=== PATIENT | female | born 1940 | race Caucasian/White ===

== ENCOUNTER 2017-06-11 18:13 | Observation (INO) | payer SELFPAY ==
--- NOTE | 2017-06-11 18:21 | PDOC ---
History of Present Illness - General History Source: Patient, Family Exam Limitations: No Limitations <Ruth Ann Caceres - Last Filed: 06/11/17 22:01> <Khushbu Eduardo - Last Filed: 06/11/17 22:11> - General Chief Complaint: Syncope/Near Syncope Stated Complaint: SYNCOPE - History of Present Illness Initial Comments: 06/11/17 18:42 The patient is a 76 year old female, with a significant PMH of hypertension who presents to the emergency department s/p syncopal episode earlier today. The patient reports that she was eating dinner when she had a sudden onset of slight nausea and diaphoresis. As per family, patient suddenly lost consciousness and her eyes rolled to the back of her head. Family states this episode of LOC lasted 1 minute before resolving. Thereafter family members positioned her on the couch seated with her feet up and symptoms improved. Upon the arrival to the ED, patient has no complaints. Patient states she was at her baseline earlier today, before eating dinner. The patient denies chest pain, shortness of breath, headache and dizziness. Denies fever, chills, vomit, diarrhea and constipation. Denies dysuria, frequency, urgency and hematuria. Social history: Patient lives in [place] with family. (Ruth Ann Caceres) Past History <Ruth Ann Caceres - Last Filed: 06/11/17 22:01> <Khushbu Eduardo - Last Filed: 06/11/17 22:11> - Past Medical History Allergies/Adverse Reactions: Allergies Allergy/AdvReac Type Severity Reaction Status Date / Time No Known Allergies Allergy Verified 06/11/17 18:34 Home Medications: Ambulatory Orders Isosorbide Mononitrate 10 mg PO DAILY 06/11/17 Review of Systems - Review of Systems Able to Perform ROS?: Yes All Other Systems: Reviewed and Negative <Ruth Ann Caceres - Last Filed: 06/11/17 22:01> <Khushbu Eduardo - Last Filed: 06/11/17 22:11> - Review of Systems Comments:: 06/11/17 18:44 CONSTITUTIONAL: +diaphoresis Absent:fever, chills, generalized weakness, malaise, loss of appetite HEENT: Absent: rhinorrhea, nasal congestion, throat pain, throat swelling, difficulty swallowing, mouth swelling, ear pain, eye pain, visual Changes CARDIOVASCULAR: Absent: chest pain, syncope, palpitations, irregular heart rate, lightheadedness , peripheral edema RESPIRATORY: Absent: cough, shortness of breath, dyspnea with exertion, orthopnea, wheezing, stridor, hemoptysis GASTROINTESTINAL:+nausea Absent: abdominal pain, abdominal distension, vomiting, diarrhea, constipation, melena, hematochezia GENITOURINARY: Absent: dysuria, frequency, urgency, hesitancy, hematuria, flank pain, genital pain MUSCULOSKELETAL: Absent: myalgia, arthralgia, joint swelling SKIN: Absent: rash, itching, pallor HEMATOLOGIC/IMMUNOLOGIC: Absent: easy bleeding, easy bruising, lymphadenopathy, frequent infections ENDOCRINE: Absent: unexplained weight gain, unexplained weight loss, heat intolerance, cold intolerance NEUROLOGIC: +loss of consciousness Absent: headache, focal weakness or paresthesias, dizziness, unsteady gait, seizure, mental status changes, bladder or bowel incontinence PSYCHIATRIC: Absent: anxiety, depression, suicidal or homicidal ideation, hallucinations. (Ruth Ann Caceres) *Physical Exam <Ruth Ann Caceres - Last Filed: 06/11/17 22:01> <Khushbu Eduardo - Last Filed: 06/11/17 22:11> - Vital Signs Last Vital Signs Temp Pulse Resp BP Pulse Ox 97.6 F 67 18 193/82 94 L 06/11/17 18:25 06/11/17 20:00 06/11/17 20:00 06/11/17 20:00 06/11/17 20:00 - Physical Exam Comments: 06/11/17 18:45 GENERAL: Well developed, well nourished. Awake and alert. No acute distress. HEENT: Normocephalic, atraumatic. PERRLA, EOMI. No conjunctival pallor. Sclera are non- icteric. Moist mucous membranes. Oropharynx is clear. NECK: Supple. Full ROM. No JVD. Carotid pulses 2+ and symmetric, without bruits. No thyromegaly. No lymphadenopathy. CARDIOVASCULAR: Regular rate and rhythm. No murmurs, rubs, or gallops. Distal pulses are 2+ and symmetric. PULMONARY: No evidence of respiratory distress. Lungs clear to auscultation bilaterally. No wheezing, rales or rhonchi. ABDOMINAL: Soft. Non-tender. Non-distended. No rebound or guarding. No organomegaly. Normoactive bowel sounds. MUSCULOSKELETAL Normal range of motion at all joints. No bony deformities or tenderness. No CVA tenderness. EXTREMITIES: No cyanosis. No clubbing. No edema. No calf tenderness. SKIN: Warm and dry. Normal capillary refill. No rashes. No jaundice. NEUROLOGICAL: Alert, awake, appropriate. Cranial nerves 2-12 intact. No deficits to light touch and temperature in face, upper extremities and lower extremities. No motor deficits in the in face, upper extremities and lower extremities. Normoreflexic in the upper and lower extremities. Normal speech. Toes are down- going bilaterally. Gait is normal without ataxia. PSYCHIATRIC: Cooperative. Good eye contact. Appropriate mood and affect. (Ruth Ann Caceres) Heart Score/ECG Review <Ruth Ann Caceres - Last Filed: 06/11/17 22:01> - Electrocardiogram EKG: Normal - Age Age: >/= 65 - Risk Factors Risk Factors Heart Score: Yes Hx Hypertension Based on the list above the patient has:: 1-2 risk factors - ECG Intrepretation Rhythm: Regular Rhythm - [place]: Normal - P and [place] Delta Wave(s) Present: No WPW: No - QRS Q Wave Present: No - ST and T Early Repolarization: No Non Specific ST-T Wave changes: Yes <Khushbu Eduardo - Last Filed: 06/11/17 22:11> #1 06/11/17 18:46 Vent rate 68 bpm [place] interval 156ms QRS duration 92ms Normal sinus rhythm Nonspecific ST and T wave abnormality Reported by Dr. Eduardo (Ruth Ann Caceres) ED Treatment Course - LABORATORY CBC & Chemistry Diagram: 06/11/17 18:35 06/11/17 20:31 <Ruth Ann Caceres - Last Filed: 06/11/17 22:01> - LABORATORY CBC & Chemistry Diagram: 06/11/17 18:35 06/11/17 20:31 <Khushbu Eduardo - Last Filed: 06/11/17 22:11> - ADDITIONAL ORDERS Additional order review: Laboratory Results 06/11/17 06/11/17 06/11/17 20:31 18:35 18:35 PT with INR INR Sodium 138 Cancelled Potassium 3.7 Cancelled Chloride 105 Cancelled Carbon Dioxide 24 Cancelled Anion Gap 9 Cancelled BUN 15 Cancelled Creatinine 0.7 Cancelled Creat Clearance w eGFR > 60 Cancelled Random Glucose 93 Cancelled Calcium 8.7 Cancelled Total Bilirubin 0.6 Cancelled AST 20 Cancelled ALT 26 Cancelled Alkaline Phosphatase 62 Cancelled Creatine Kinase 61 Cancelled Troponin I < 0.02 Cancelled Total Protein 7.6 Cancelled Albumin 4.1 Cancelled Triglycerides Cancelled Cholesterol Cancelled Total LDL Cholesterol Cancelled HDL Cholesterol Cancelled Blood Type A POSITIVE 06/11/17 18:35 PT with INR 11.90 H INR 1.05 Sodium Potassium Chloride Carbon Dioxide Anion Gap BUN Creatinine Creat Clearance w eGFR Random Glucose Calcium Total Bilirubin AST ALT Alkaline Phosphatase Creatine Kinase Troponin I Total Protein Albumin Triglycerides Cholesterol Total LDL Cholesterol HDL Cholesterol Blood Type 06/11/17 18:35 RBC 4.58 MCV 88.3 MCHC 33.7 RDW 12.7 MPV 8.1 Neutrophils % 63.1 Lymphocytes % 28.8 Monocytes % 7.1 Eosinophils % 0.6 Basophils % 0.4 - RADIOLOGY Radiology Studies Ordered: Category Date Time Status HEAD CT WITHOUT CONTRAST [CT] Stat CT Scan 06/11/17 18:20 Taken CHEST X-RAY PORTABLE* [RAD] Stat Radiology 06/11/17 19:12 Taken Radiograph Interpretation: 06/11/17 20:48 EXAM: CT head without contrast FINDINGS: 1. There is no evidence of an acute intracranial process, intracranial hemorrhage or mass effect. There is atherosclerotic vascular calcification of the internal carotid arteries bilaterally at the skull base. 2. The ventricles are normal size. 3. The visualized portions of the orbits, paranasal and mastoid sinuses are notable for hypoplastic mastoid sinuses bilaterally. 4. No evidence of fracture If there is a clinical suspicion of an acute intracranial process and if there is no clinical contraindication, MRI of the brain may be helpful. Reported by Imaging Oncall (Ruth Ann Caceres) - Medications Given in the ED: ED Medications Discontinued Medications Generic Name Dose Route Start Last Admin Trade Name Freq PRN Reason Stop Dose Admin Amlodipine Besylate 5 mg 06/11/17 20:12 06/11/17 20:24 Norvasc - PO 06/11/17 20:13 5 mg ONCE ONE Administration Aspirin 81 mg 06/11/17 21:35 06/11/17 21:41 Asa - PO 06/11/17 21:36 81 mg ONCE ONE Administration Hydrochlorothiazide 25 mg 06/11/17 20:12 06/11/17 20:24 Hctz - PO 06/11/17 20:13 25 mg ONCE ONE Administration Medical Decision Making <Ruth Ann Caceres - Last Filed: 06/11/17 22:01> <Khushbu Eduardo - Last Filed: 06/11/17 22:11> - Medical Decision Making 06/11/17 22:[address] Elliott at 9:58pm (Ruth Ann Caceres) 06/11/17 18:30 76-year-old female brought in by ambulance from home after having a syncopal episode during Easter dinner.The episode lasted about 1 minute Upon arrival, the patient was alert and conversant with no specific complaints -just prior to the episode she felt nausea and her family stated she became diaphoretic .they took her to the cough and liad her down and she felt better PMH Angina, HTN PSH none PCP pt is visiting from [facility] IMP syncope plan ekg,ct head,cardiac enzymes,chemistries (Khushbu Eduardo) *DC/Admit/Observation/Transfer <Ruth Ann Caceres - Last Filed: 06/11/17 22:01> - Discharge Dispostion Admit: Yes <Khushbu Eduardo - Last Filed: 06/11/17 22:11> Diagnosis at time of Disposition: Syncope Qualifiers: Syncope type: unspecified Qualified Code(s): R55 - Syncope and collapse Hypertension Qualifiers: Hypertension type: essential hypertension Qualified Code(s): I10 - Essential ( primary) hypertension - Discharge Dispostion Decision to Admit order Date/Time: Decision to Admit Order Category Date Time Status Decision to Admit to Hospital Routine Admission 06/11/17 22:00 Active - Attestations Scribe Attestion: 06/11/17 18:50 Documentation prepared by Ruth Ann Caceres, acting as medical transport specialist for Khushbu Eduardo MD (Ruth Ann Caceres)
[2017-06-11 18:57] LABS: BASO % 0.4 % (0-2.0); EOS % 0.6 % (0-4.5); HEMATOCRIT 40.5 % (32.4-45.2); HEMOGLOBIN 13.7 GM/dL (10.7-15.3); LYMPH % 28.8 % (8-40); MCH 29.8 pg (25.7-33.7); MCHC 33.7 g/dl (32.0-36.0); MEAN CELL VOLUME 88.3 fl (80-96); MEAN PLT VOLUME 8.1 fl (7.5-11.1); MONO % 7.1 % (3.8-10.2); NEUT % 63.1 % (42.8-82.8); PLATELET COUNT 264 K/MM3 (134-434); RBC 4.58 M/mm3 (3.60-5.2); RDW 12.7 % (11.6-15.6); WHITE BLOOD COUNT 7.4 K/mm3 (4.0-10.0)
[2017-06-11 19:09] LABS: INR 1.05 (0.82-1.09); PROTHROMBIN TIME (PATIENT) 11.9 SEC (9.98-11.88)
[2017-06-11] MEDS ORDERED: HYDROCHLOROTHIAZIDE 25 MG TABLET (FP) PO ONE (20:12)
[2017-06-11] MEDS ORDERED: amLODIPine BESYLATE 5 MG TABLET (FP) PO ONE (20:12)
[2017-06-11] MEDS ORDERED: amLODIPine BESYLATE 5 MG TABLET (FP) ONE (20:27)
[2017-06-11] MEDS ORDERED: HYDROCHLOROTHIAZIDE 25 MG TABLET (FP) ONE (20:28)
[2017-06-11 21:12] LABS: ALBUMIN 4.1 g/dl (3.4-5.0); ANION GAP 9 (8-16); BLOOD UREA NITROGEN 15 mg/dL (7-18); CALCIUM 8.7 mg/dL (8.5-10.1); CHLORIDE 105 mmol/L (98-107); CO2 24 mmol/L (21-32); CREATININE 0.7 mg/dL (0.55-1.02); GLUCOSE,RANDOM 93 mg/dL (74-106); POTASSIUM 3.7 mmol/L (3.5-5.1); SGOT/AST 20 U/L (15-37); SGPT/ALT 26 U/L (12-78); SODIUM 138 mmol/L (136-145)
[2017-06-11 21:16] LABS: ALK PHOS 62 U/L (45-117); BILIRUBIN,TOTAL 0.6 mg/dL (0.2-1.0); TOT PROT 7.6 g/dl (6.4-8.2)
[2017-06-11] MEDS ORDERED: ASPIRIN 81 MG CHEWABLE TABLETS PO ONE (21:35)
--- NOTE | 2017-06-11 22:04 | HP ---
CHIEF COMPLAINT: syncope PCP: none HISTORY OF PRESENT ILLNESS: 76 year old, Prydeinig-speaking female with a hx of hypertension and stable angina presents to the hospital s/p syncopal episode at dinner today. She is visiting from [facility]. She states that she was at the dinner table sitting comfortably when she began to feel dizzy and felt as if she was going to pass out. Her family reports that the patient's eye's rolled into the back of her chair and she fell sideways. The family reports placing the patient in bed with her head propped up. Reports that the patient awoke within 1 minute of the incident and did not have any confusion or difference in mental status. The family states that this morning, the patient's daughter gave the patient a lasix because of her feeling "bloated" and for her blood pressure. Patient does not take lasix regularly. Denies any prior chest pain, shortness of breath, nausea or vomiting, headache, blurry vision, double vision, diaphoresis. Currently, patient is asymptomatic. Family states that the patient had one prior syncopal episode many years ago during the patient's second . ER course was notable for: (1) BP 193/82 (2) Trop negative (3) Recent Travel: visiting from [facility] PAST MEDICAL HISTORY: HTN, Stable Angina PAST SURGICAL HISTORY: none Social History: Smoking: never Alcohol: never Drugs: never Allergies No Known Allergies Allergy (Verified 06/11/17 18:34) HOME MEDICATIONS: Home Medications Medication Instructions Recorded Isosorbide Mononitrate 10 mg PO DAILY 06/11/17 REVIEW OF SYSTEMS CONSTITUTIONAL: Absent: fever, chills, diaphoresis, generalized weakness, malaise, loss of appetite, weight change HEENT: Absent: rhinorrhea, nasal congestion, throat pain, throat swelling, difficulty swallowing, mouth swelling, ear pain, eye pain, visual changes CARDIOVASCULAR: Absent: chest pain, syncope, palpitations, irregular heart rate, lightheadedness , peripheral edema RESPIRATORY: Absent: cough, shortness of breath, dyspnea with exertion, orthopnea, wheezing, stridor, hemoptysis GASTROINTESTINAL: Absent: abdominal pain, abdominal distension, nausea, vomiting, diarrhea, constipation, melena, hematochezia GENITOURINARY: Absent: dysuria, frequency, urgency, hesitancy, hematuria, flank pain, genital pain MUSCULOSKELETAL: Absent: myalgia, arthralgia, joint swelling, back pain, neck pain SKIN: Absent: rash, itching, pallor HEMATOLOGIC/IMMUNOLOGIC: Absent: easy bleeding, easy bruising, lymphadenopathy, frequent infections ENDOCRINE: Absent: unexplained weight gain, unexplained weight loss, heat intolerance, cold intolerance NEUROLOGIC: Absent: headache, focal weakness or paresthesias, dizziness, unsteady gait, seizure, mental status changes, bladder or bowel incontinence PSYCHIATRIC: Absent: anxiety, depression, suicidal or homicidal ideation, hallucinations. PHYSICAL EXAMINATION Vital Signs - 24 hr 06/11/17 06/11/17 18:25 20:00 Temperature 97.6 F Pulse Rate 66 Pulse Rate [ 67 Apical] Respiratory 14 18 Rate Blood Pressure 178/72 Blood Pressure 193/82 [Right Arm] O2 Sat by Pulse 94 L 94 L Oximetry (%) GENERAL: A&Ox3, no acute distress EYES: PERRLA, EOMI ENT: Moist mucus membranes NECK: No JVD LUNGS: CTA, no wheezes HEART: RRR, no murmurs ABDOMEN: Soft, nontender, BS present MUSCULOSKELETAL: No CVA Tenderness EXTREMITIES: 2+ pulses, no edema. NEUROLOGICAL: Cranial nerves II-XII intact. Laboratory Results - last 24 hr 06/11/17 06/11/17 06/11/17 18:35 18:35 18:35 WBC 7.4 RBC 4.58 Hgb 13.7 Hct 40.5 MCV 88.3 MCH 29.8 MCHC 33.7 RDW 12.7 Plt Count 264 MPV 8.1 Neutrophils % 63.1 Lymphocytes % 28.8 Monocytes % 7.1 Eosinophils % 0.6 Basophils % 0.4 PT with INR 11.90 H INR 1.05 Sodium Cancelled Potassium Cancelled Chloride Cancelled Carbon Dioxide Cancelled Anion Gap Cancelled BUN Cancelled Creatinine Cancelled Creat Clearance w eGFR Cancelled Random Glucose Cancelled Calcium Cancelled Total Bilirubin Cancelled AST Cancelled ALT Cancelled Alkaline Phosphatase Cancelled Creatine Kinase Cancelled Troponin I Cancelled Total Protein Cancelled Albumin Cancelled Triglycerides Cancelled Cholesterol Cancelled Total LDL Cholesterol Cancelled HDL Cholesterol Cancelled Blood Type 06/11/17 06/11/17 18:35 20:31 WBC RBC Hgb Hct MCV MCH MCHC RDW Plt Count MPV Neutrophils % Lymphocytes % Monocytes % Eosinophils % Basophils % PT with INR INR Sodium 138 Potassium 3.7 Chloride 105 Carbon Dioxide 24 Anion Gap 9 BUN 15 Creatinine 0.7 Creat Clearance w eGFR > 60 Random Glucose 93 Calcium 8.7 Total Bilirubin 0.6 AST 20 ALT 26 Alkaline Phosphatase 62 Creatine Kinase 61 Troponin I < 0.02 Total Protein 7.6 Albumin 4.1 Triglycerides Cholesterol Total LDL Cholesterol HDL Cholesterol Blood Type A POSITIVE ASSESSMENT/PLAN: 76 year old, Prydeinig-speaking female with a hx of hypertension and stable angina presented to the hospital s/p syncopal episode #Syncopal Episode: likely 2/2 vasovagal response and due to diuretic use -CT head negative -cardiac monitoring -echocardiogram -carotid doppler -cards consult Dr. Henry appreciated -trop negative, trend trop -EKG NSR, repeat EKG in AM #Hypertension: patient is hypertensive -patient on fosinopril -take lisinopril 10mg BID #Stable Angina: asymptomatic -continue isosorbide mononitrate 10mg BID #FEN No standing fluids Replete lytes in AM Sodium controlled diet #Prophylaxis -early ambulation with assistance #Disposition -admit to telemetry-observation Visit type - Emergency Visit Emergency Visit: Yes ED Registration Date: 06/11/17 Care time: The patient presented to the Emergency Department on the above date and was hospitalized for further evaluation of their emergent condition. - New Patient This patient is new to me today: Yes Date on this admission: 06/11/17 - Critical Care Critical Care patient: No Hospitalist Screening - Colonoscopy Questionnaire Colonoscopy Questionnaire: Colonoscopy Questionnaire - Patient: 50 - 75 years old and never had a screening colonoscopy: Unknown History of colon or rectal polyps, or CA: Unknown History of IBD, Crohn's disease or UC: Unknown History of abdominal radiation therapy as a child: Unknown - Relative: 1 with colon or rectal CA, or polyps at age 60 or younger: Unknown Colon or rectal CA diagnosed at age 45 or younger: Unknown Multiple relatives with colon or rectal CA: Unknown - Outcome: Screening Result: Negative Screen
--- NOTE | 2017-06-11 22:09 | PN ---
Teaching Attending Note Name of Resident: Prakash Hamilton ATTENDING PHYSICIAN STATEMENT I saw and evaluated the patient. I reviewed the resident's note and discussed the case with the resident. I agree with the resident's findings and plan as documented. SUBJECTIVE: 76 yo F with pmhx of htn who presents with loss of conscioussness. She was eating with her family when she has sudden nausea and sweating. As per family she lsot conscioussness, which lasted for a duration of a minute. When she was seated up again, by family her symptoms had improved. No chest pain, pressure or shortness of breath. No N, V, D. No fevers or chills. As per family pt. was given lasix day before by family member. OBJECTIVE: Physical: VS: Vital Signs Period Temp Pulse Resp BP Sys/Travis Pulse Ox Last 24 Hr 97.6 F 66-67 14-18 178-193/72-82 94-94 REPEAT BP 169/84 GEN:NAD, resting in bed, AAOX3 HEENT: NCAT, PERRL, Throat without erythema or exudates CARD: RRR S1, S2 RESP: CTAB ABD: BSx4, NTD to palpation EXT: - C/C/E CBCD WBC 7.4 K/mm3 (4.0-10.0) 06/11/17 18:35 RBC 4.58 M/mm3 (3.60-5.2) 06/11/17 18:35 Hgb 13.7 GM/dL (10.7-15.3) 06/11/17 18:35 Hct 40.5 % (32.4-45.2) 06/11/17 18:35 MCV 88.3 fl (80-96) 06/11/17 18:35 MCHC 33.7 g/dl (32.0-36.0) 06/11/17 18:35 RDW 12.7 % (11.6-15.6) 06/11/17 18:35 Plt Count 264 K/MM3 (134-434) 06/11/17 18:35 MPV 8.1 fl (7.5-11.1) 06/11/17 18:35 CMP Sodium 138 mmol/L (136-145) 06/11/17 20:31 Potassium 3.7 mmol/L (3.5-5.1) 06/11/17 20:31 Chloride 105 mmol/L (98-107) 06/11/17 20:31 Carbon Dioxide 24 mmol/L (21-32) 06/11/17 20:31 Anion Gap 9 (8-16) 06/11/17 20:31 BUN 15 mg/dL (7-18) 06/11/17 20:31 Creatinine 0.7 mg/dL (0.55-1.02) 06/11/17 20:31 Creat Clearance w eGFR > 60 (>60) 06/11/17 20:31 Random Glucose 93 mg/dL (74-106) 06/11/17 20:31 Calcium 8.7 mg/dL (8.5-10.1) 06/11/17 20:31 Total Bilirubin 0.6 mg/dL (0.2-1.0) 06/11/17 20:31 AST 20 U/L (15-37) 06/11/17 20:31 ALT 26 U/L (12-78) 06/11/17 20:31 Alkaline Phosphatase 62 U/L (45-117) 06/11/17 20:31 Total Protein 7.6 g/dl (6.4-8.2) 06/11/17 20:31 Albumin 4.1 g/dl (3.4-5.0) 06/11/17 20:31 CARDIAC ENZYMES Creatine Kinase 61 IU/L (26-192) 06/11/17 20:31 Troponin I < 0.02 ng/ml (0.00-0.05) 06/11/17 20:31 CXR: No Acute Process EKG:Vent rate 68 bpm MS interval 156ms QRS duration 92ms Normal sinus rhythm Nonspecific ST and T wave abnormality Reported by Dr. Eduardo ([facility]) CT HEAD- EXAM: CT head without contrast FINDINGS: 1. There is no evidence of an acute intracranial process, intracranial hemorrhage or mass effect. There is atherosclerotic vascular calcification of the internal carotid arteries bilaterally at the skull base. 2. The ventricles are normal size. 3. The visualized portions of the orbits, paranasal and mastoid sinuses are notable for hypoplastic mastoid sinuses bilaterally. 4. No evidence of fracture If there is a clinical suspicion of an acute intracranial process and if there is no clinical contraindication, MRI of the brain may be helpful. Reported by Imaging Oncall ASSESSMENT AND PLAN: 76 yo F with pmhx of htn who presents with loss of conscioussnes 1.) Syncope - DDx: Cardiogenic vs. Vasovagal/Neuro - Trend Trop/Ekg - Echo/Carotid Us - Check TSH - Orthostatic VS. 2.) HTN Urgency - Now improved - C/W Home Meds 3.) Dvt Ppx - SCDS Place in Obs-Tele
[2017-06-11] MEDS ORDERED: LISINOPRIL 5 MG TABLET (FP) ONE (23:47)
[2017-06-11] MEDS: LISINOPRIL 10 MG TABLET (FP) PO SCH (23:49)
[2017-06-12 07:12] LABS: HEMATOCRIT 39.7 % (32.4-45.2); HEMOGLOBIN 13.6 GM/dL (10.7-15.3); MCH 30.1 pg (25.7-33.7); MCHC 34.3 g/dl (32.0-36.0); MEAN CELL VOLUME 87.9 fl (80-96); MEAN PLT VOLUME 7.9 fl (7.5-11.1); PLATELET COUNT 250 K/MM3 (134-434); RBC 4.52 M/mm3 (3.60-5.2); RDW 12.7 % (11.6-15.6); WHITE BLOOD COUNT 5.6 K/mm3 (4.0-10.0)
[2017-06-12] MEDS ORDERED: ISOSORBIDE MONONITRATE 10 MG TABLET PO SCH (08:00)
[2017-06-12 08:16] LABS: CHLORIDE 103 mmol/L (98-107); POTASSIUM 3.9 mmol/L (3.5-5.1); SODIUM 138 mmol/L (136-145)
[2017-06-12] MEDS ORDERED: ISOSORBIDE MONONITRATE 20 MG TABLET PO SCH (08:34)
[2017-06-12 08:52] LABS: ANION GAP 11 (8-16); BLOOD UREA NITROGEN 13 mg/dL (7-18); CALCIUM 9.1 mg/dL (8.5-10.1); CO2 24 mmol/L (21-32); CREATININE 0.6 mg/dL (0.55-1.02); GLUCOSE,RANDOM 82 mg/dL (74-106); MAGNESIUM 2.5 mg/dL (1.8-2.4)
[2017-06-12 09:14] LABS: CHOLESTEROL 180 mg/dL (50-200); LDL CHOLESTEROL (ONLY SJRH) 94 mg/dL (5-100); TRIGLYCERIDES 120 mg/dL (35-160)
[2017-06-12 09:15] LABS: HDL CHOLESTEROL 69 mg/dL (40-60)
--- NOTE | 2017-06-12 09:49 | CON.CARD ---
Cardiology Consult (text) - Consultation Consultation Note: cc: syncope hpi: 76 f hx htn, ?Cad, here after syncope. Was having dinner yesterday and was witnessed to have syncope. She was sitting at table and felt dizzy and her eyes rolled back and she leaned over in chair. She was placed in bed and awoke in a minute and felt fine. No cp, sob, palps, pnd, orthopnea, le edema. Feels well now. pmh: per hpi psh: nc social: no tob fam: nc ros: per hpi; no fever, nvd, gib, hematuria, dysuria, cough, shannon, vision changes meds: Home Medications Medication Instructions Recorded Fosinopril Sodium [Monopril -] 10 mg PO BID 06/11/17 Isosorbide Mononitrate 10 mg PO DAILY 06/11/17 pe: Vital Signs Period Temp Pulse Resp BP Sys/Travis Pulse Ox Last 24 Hr 97.6 F-98.0 F 66-86 14-20 143-193/72-93 94-98 nad no jvd rrr s1s2 no mrg cta bl nl eff aao3 no le e/c/c abd nt nd pos bs no jaundice diaphoresis pos dp pt no carotid bruits Laboratory Last Values WBC 5.6 K/mm3 (4.0-10.0) 06/12/17 06:35 RBC 4.52 M/mm3 (3.60-5.2) 06/12/17 06:35 Hgb 13.6 GM/dL (10.7-15.3) 06/12/17 06:35 Hct 39.7 % (32.4-45.2) 06/12/17 06:35 MCV 87.9 fl (80-96) 06/12/17 06:35 MCH 30.1 pg (25.7-33.7) 06/12/17 06:35 MCHC 34.3 g/dl (32.0-36.0) 06/12/17 06:35 RDW 12.7 % (11.6-15.6) 06/12/17 06:35 Plt Count 250 K/MM3 (134-434) 06/12/17 06:35 MPV 7.9 fl (7.5-11.1) 06/12/17 06:35 Neutrophils % 63.1 % (42.8-82.8) 06/11/17 18:35 Lymphocytes % 28.8 % (8-40) 06/11/17 18:35 Monocytes % 7.1 % (3.8-10.2) 06/11/17 18:35 Eosinophils % 0.6 % (0-4.5) 06/11/17 18:35 Basophils % 0.4 % (0-2.0) 06/11/17 18:35 PT with INR 11.90 SEC (9.98-11.88) H 06/11/17 18:35 INR 1.05 (0.82-1.09) 06/11/17 18:35 Sodium 138 mmol/L (136-145) 06/12/17 06:35 Potassium 3.9 mmol/L (3.5-5.1) 06/12/17 06:35 Chloride 103 mmol/L (98-107) 06/12/17 06:35 Carbon Dioxide 24 mmol/L (21-32) 06/12/17 06:35 Anion Gap 11 (8-16) 06/12/17 06:35 BUN 13 mg/dL (7-18) 06/12/17 06:35 Creatinine 0.6 mg/dL (0.55-1.02) 06/12/17 06:35 Creat Clearance w eGFR > 60 (>60) 06/11/17 20:31 Random Glucose 82 mg/dL (74-106) 06/12/17 06:35 Calcium 9.1 mg/dL (8.5-10.1) 06/12/17 06:35 Magnesium 2.5 mg/dL (1.8-2.4) H 06/12/17 06:35 Total Bilirubin 0.6 mg/dL (0.2-1.0) 06/11/17 20:31 AST 20 U/L (15-37) 06/11/17 20:31 ALT 26 U/L (12-78) 06/11/17 20:31 Alkaline Phosphatase 62 U/L (45-117) 06/11/17 20:31 Creatine Kinase 63 IU/L (26-192) 06/12/17 06:35 Troponin I < 0.02 ng/ml (0.00-0.05) 06/12/17 06:35 Total Protein 7.6 g/dl (6.4-8.2) 06/11/17 20:31 Albumin 4.1 g/dl (3.4-5.0) 06/11/17 20:31 Triglycerides 120 mg/dL (35-160) 06/12/17 06:35 Cholesterol 180 mg/dL (50-200) 06/12/17 06:35 Total LDL Cholesterol 94 mg/dL (5-100) 06/12/17 06:35 HDL Cholesterol 69 mg/dL (40-60) H 06/12/17 06:35 Blood Type A POSITIVE 06/11/17 18:35 Antibody Screen Negative 06/11/17 18:35 ecg: sr, nl intervals, no ischemic changes cxr: clear lungs tele: sr a/p: 76 f hx htn, ?Cad, here after syncope. syncope: -possibly vasovagal based on description -no signs chf, acs, arrhythmia -tele benign -echo pending, if benign then ok for dc from cardiac pov with possible event monitor as outpt cad: -per hx she has stable angina -cont home nitrate -[facility] htn: -cont [place]
[2017-06-12] MEDS ORDERED: LISINOPRIL 10 MG TABLET (FP) PO SCH (10:00)
--- NOTE | 2017-06-12 10:02 | PN ---
Physical Exam: SUBJECTIVE: Patient seen and examined in the ED awaiting bed assignment. OBJECTIVE: Vital Signs Period Temp Pulse Resp BP Sys/Travis Pulse Ox Last 24 Hr 97.6 F-98.0 F 66-86 14-20 143-193/72-93 94-98 GENERAL: The patient is awake, alert, in no acute distress HEAD: Normal with no signs of trauma. EYES: PERRL, extraocular movements intact, sclera anicteric, conjunctiva clear. No ptosis. ENT: Ears normal, nares patent, oropharynx clear without exudates, moist mucous membranes. NECK: Trachea midline, full range of motion, supple. LUNGS: Breath sounds equal, clear to auscultation bilaterally HEART: Regular rate and rhythm ABDOMEN: Soft, nontender, nondistended, normoactive bowel sounds EXTREMITIES: no edema NEUROLOGICAL: Normal speech, gait not observed. PSYCH: Normal mood, normal affect. SKIN: Warm, dry, normal turgor, no rashes or lesions noted Laboratory Results - last 24 hr 06/11/17 06/11/17 06/11/17 18:35 18:35 18:35 WBC 7.4 RBC 4.58 Hgb 13.7 Hct 40.5 MCV 88.3 MCH 29.8 MCHC 33.7 RDW 12.7 Plt Count 264 MPV 8.1 Neutrophils % 63.1 Lymphocytes % 28.8 Monocytes % 7.1 Eosinophils % 0.6 Basophils % 0.4 PT with INR 11.90 H INR 1.05 Sodium Cancelled Potassium Cancelled Chloride Cancelled Carbon Dioxide Cancelled Anion Gap Cancelled BUN Cancelled Creatinine Cancelled Creat Clearance w eGFR Cancelled Random Glucose Cancelled Calcium Cancelled Magnesium Total Bilirubin Cancelled AST Cancelled ALT Cancelled Alkaline Phosphatase Cancelled Creatine Kinase Cancelled Troponin I Cancelled Total Protein Cancelled Albumin Cancelled Triglycerides Cancelled Cholesterol Cancelled Total LDL Cholesterol Cancelled HDL Cholesterol Cancelled Blood Type Antibody Screen 06/11/17 06/11/17 06/12/17 18:35 20:31 06:35 WBC 5.6 RBC 4.52 Hgb 13.6 Hct 39.7 MCV 87.9 MCH 30.1 MCHC 34.3 RDW 12.7 Plt Count 250 MPV 7.9 Neutrophils % Lymphocytes % Monocytes % Eosinophils % Basophils % PT with INR INR Sodium 138 Potassium 3.7 Chloride 105 Carbon Dioxide 24 Anion Gap 9 BUN 15 Creatinine 0.7 Creat Clearance w eGFR > 60 Random Glucose 93 Calcium 8.7 Magnesium Total Bilirubin 0.6 AST 20 ALT 26 Alkaline Phosphatase 62 Creatine Kinase 61 Troponin I < 0.02 Total Protein 7.6 Albumin 4.1 Triglycerides Cholesterol Total LDL Cholesterol HDL Cholesterol Blood Type A POSITIVE Antibody Screen Negative 06/12/17 06/12/17 06:35 06:35 WBC RBC Hgb Hct MCV MCH MCHC RDW Plt Count MPV Neutrophils % Lymphocytes % Monocytes % Eosinophils % Basophils % PT with INR INR Sodium 138 Potassium 3.9 Chloride 103 Carbon Dioxide 24 Anion Gap 11 BUN 13 Creatinine 0.6 Creat Clearance w eGFR Random Glucose 82 Calcium 9.1 Magnesium 2.5 H Total Bilirubin AST ALT Alkaline Phosphatase Creatine Kinase 63 Troponin I < 0.02 Total Protein Albumin Triglycerides 120 Cholesterol 180 Total LDL Cholesterol 94 HDL Cholesterol 69 H Blood Type Antibody Screen Active Medications Generic Name Dose Route Start Last Admin Trade Name Freq PRN Reason Stop Dose Admin Isosorbide Mononitrate 10 mg 06/12/17 08:34 Ismo - PO BID@0800,1500 [facility] Lisinopril 10 mg 06/11/17 23:53 06/11/17 23:49 Prinivil PO 10 mg BID [facility] Administration ASSESSMENT/PLAN:
--- NOTE | 2017-06-12 11:25 | EKG ---
Test Reason : Blood Pressure : / mmHG Vent. Rate : 079 BPM Atrial Rate : 079 BPM P-R Int : 162 ms QRS Dur : 082 ms QT Int : 424 ms P-R-T Axes : 069 017 -11 degrees QTc Int : 486 ms NORMAL SINUS RHYTHM NONSPECIFIC ST AND T WAVE ABNORMALITY ABNORMAL ECG WHEN COMPARED WITH ECG OF 11-JUN-2017 18:32, NO SIGNIFICANT CHANGE WAS FOUND Confirmed by JUANJOSE WATTS MD ([id number]) on 06/12/2017 11:25:05 AM Referred By: Confirmed By:JUANJOSE WATTS MD
--- NOTE | 2017-06-12 11:34 | EKG ---
Test Reason : Blood Pressure : / mmHG Vent. Rate : 068 BPM Atrial Rate : 068 BPM P-R Int : 156 ms QRS Dur : 092 ms QT Int : 440 ms P-R-T Axes : 071 009 030 degrees QTc Int : 467 ms NORMAL SINUS RHYTHM NONSPECIFIC ST AND T WAVE ABNORMALITY ABNORMAL ECG NO PREVIOUS ECGS AVAILABLE Confirmed by STEFANIE FELIX, JUANJOSE ([id number]) on 06/12/2017 11:34:05 AM Referred By: Confirmed By:JUANJOSE WATTS MD
[2017-06-12] MEDS: LISINOPRIL 10 MG TABLET (FP) PO SCH (11:37)
[2017-06-12 12:24] LABS: URINE APPEARANCE CLEAR; URINE BILIRUBIN NEGATIVE (<2.0 mg/dL); URINE BLOOD NEGATIVE (NEGATIVE); URINE COLOR LTYELLOW; URINE GLUCOSE (UA) NEGATIVE (NEGATIVE); URINE KETONE NEGATIVE (NEGATIVE); URINE LEUK ESTERASE TRACE (NEGATIVE); URINE NITRITE NEGATIVE (NEGATIVE); URINE PROTEIN NEGATIVE (NEGATIVE); URINE UROBILINOGEN NEGATIVE mg/dL (0.2-1.0)
[2017-06-12 13:09] LABS: URINE HYALINE CAST 22 /lpf; URINE MUCUS RARE
[2017-06-12 14:08] VITALS: TEMP 97.8
[2017-06-12 14:10] VITALS: BP 121/54; PULSE 75; BMI 26.4
--- NOTE | 2017-06-12 14:48 | DS ---
Physical Exam: SUBJECTIVE: Patient seen and examined OBJECTIVE: Vital Signs Period Temp Pulse Resp BP Sys/Travis Pulse Ox Last 24 Hr 97.6 F-98.0 F 66-86 14-20 121-193/54-93 94-98 PHYSICAL EXAM GENERAL: The patient is awake, alert, and fully oriented, in no acute distress. HEAD: Normal with no signs of trauma. EYES: PERRL, extraocular movements intact, sclera anicteric, conjunctiva clear. ENT: Ears normal, nares patent, oropharynx clear without exudates, moist mucous membranes. NECK: Trachea midline, full range of motion, supple. LUNGS: Breath sounds equal, clear to auscultation bilaterally, no wheezes, no crackles, no accessory muscle use. HEART: Regular rate and rhythm, S1, S2 without murmur, rub or gallop. ABDOMEN: Soft, nontender, nondistended, normoactive bowel sounds, no guarding, no rebound, no hepatosplenomegaly, no masses. EXTREMITIES: 2+ pulses, warm, well-perfused, no edema. NEUROLOGICAL: Cranial nerves II through XII grossly intact. Normal speech, gait not observed. PSYCH: Normal mood, normal affect. SKIN: Warm, dry, normal turgor, no rashes or lesions noted. LABS Laboratory Results - last 24 hr 06/11/17 06/11/17 06/11/17 18:35 18:35 18:35 WBC 7.4 RBC 4.58 Hgb 13.7 Hct 40.5 MCV 88.3 MCH 29.8 MCHC 33.7 RDW 12.7 Plt Count 264 MPV 8.1 Neutrophils % 63.1 Lymphocytes % 28.8 Monocytes % 7.1 Eosinophils % 0.6 Basophils % 0.4 PT with INR 11.90 H INR 1.05 Sodium Cancelled Potassium Cancelled Chloride Cancelled Carbon Dioxide Cancelled Anion Gap Cancelled BUN Cancelled Creatinine Cancelled Creat Clearance w eGFR Cancelled Random Glucose Cancelled Calcium Cancelled Magnesium Total Bilirubin Cancelled AST Cancelled ALT Cancelled Alkaline Phosphatase Cancelled Creatine Kinase Cancelled Troponin I Cancelled Total Protein Cancelled Albumin Cancelled Triglycerides Cancelled Cholesterol Cancelled Total LDL Cholesterol Cancelled HDL Cholesterol Cancelled Urine Color Urine Appearance Urine pH Ur Specific [place] Urine Protein Urine Glucose (UA) Urine Ketones Urine Blood Urine Nitrite Urine Bilirubin Urine Urobilinogen Ur Leukocyte Esterase Urine WBC (Auto) Urine RBC (Auto) Hyaline Casts Urine Mucus Blood Type Antibody Screen 06/11/17 06/11/17 06/12/17 18:35 20:31 06:35 WBC 5.6 RBC 4.52 Hgb 13.6 Hct 39.7 MCV 87.9 MCH 30.1 MCHC 34.3 RDW 12.7 Plt Count 250 MPV 7.9 Neutrophils % Lymphocytes % Monocytes % Eosinophils % Basophils % PT with INR INR Sodium 138 Potassium 3.7 Chloride 105 Carbon Dioxide 24 Anion Gap 9 BUN 15 Creatinine 0.7 Creat Clearance w eGFR > 60 Random Glucose 93 Calcium 8.7 Magnesium Total Bilirubin 0.6 AST 20 ALT 26 Alkaline Phosphatase 62 Creatine Kinase 61 Troponin I < 0.02 Total Protein 7.6 Albumin 4.1 Triglycerides Cholesterol Total LDL Cholesterol HDL Cholesterol Urine Color Urine Appearance Urine pH Ur Specific [place] Urine Protein Urine Glucose (UA) Urine Ketones Urine Blood Urine Nitrite Urine Bilirubin Urine Urobilinogen Ur Leukocyte Esterase Urine WBC (Auto) Urine RBC (Auto) Hyaline Casts Urine Mucus Blood Type A POSITIVE Antibody Screen Negative 06/12/17 06/12/17 06/12/17 06:35 06:35 12:10 WBC RBC Hgb Hct MCV MCH MCHC RDW Plt Count MPV Neutrophils % Lymphocytes % Monocytes % Eosinophils % Basophils % PT with INR INR Sodium 138 Potassium 3.9 Chloride 103 Carbon Dioxide 24 Anion Gap 11 BUN 13 Creatinine 0.6 Creat Clearance w eGFR Random Glucose 82 Calcium 9.1 Magnesium 2.5 H Total Bilirubin AST ALT Alkaline Phosphatase Creatine Kinase 63 Troponin I < 0.02 Total Protein Albumin Triglycerides 120 Cholesterol 180 Total LDL Cholesterol 94 HDL Cholesterol 69 H Urine Color Ltyellow Urine Appearance Clear Urine pH 6.0 Ur Specific [place] 1.010 Urine Protein Negative Urine Glucose (UA) Negative Urine Ketones Negative Urine Blood Negative Urine Nitrite Negative Urine Bilirubin Negative Urine Urobilinogen Negative Ur Leukocyte Esterase Trace Urine WBC (Auto) 5 Urine RBC (Auto) 1 Hyaline Casts 22 Urine Mucus Rare Blood Type Antibody Screen HOSPITAL COURSE: Date of Admission:06/11/17 Date of Discharge: 06/12/17 Discharge Summary Reason For Visit: SYNCOPE,HYPERTENSION Current Active Problems Hypertension (Acute) Syncope (Acute) Condition: Improved - Instructions Diet, Activity, Other Instructions: Mrs Medina: Please continue your home medications and please see your primary care doctor within 3-5 days after discharge for continued care and repeat testing. Please do not take any Lasix or other diuretics unless instructed by your primary care physician. Your imaging here are all within normal findings. Your cholesterol levels were mildly elevated, please see your primary as they may want to start you on a cholesterol medication. I have called in a prescription to [facility]. Please see the community support specialist (Dr. Perez) for outpatient halter monitoring. Please call me with any questions that you may have. Bhavani Dalton NP [facility] [phone] Referrals: Libra Hernandez MD [Staff Physician] - Alan Perez MD [Staff Physician] - 1 Month Disposition: HOME - Home Medications Comprehensive Discharge Medication List: Ambulatory Orders Fosinopril Sodium [Fosinopril Sodium -] 10 mg PO BID 06/11/17 Isosorbide Mononitrate 10 mg PO DAILY 06/11/17 Atorvastatin Ca [Lipitor] 10 mg PO HS #30 tablet 06/12/17
[2017-06-12] MEDS ORDERED: ATORVASTATIN CA 10 MG TABLET (FP) PO SCH (22:00)
== END 2017-06-12 15:15 | disposition home or self-care (01) ==
LOC: JER 18:13 → JERBED 22:00
PROVIDERS: ADMIT Internal Medicine; ATTEND Nurse Practitioner Family
CPT/HCPCS: 36415; 70450-TC; 71045-TC-FY; 80048; 80053; 80061; 81003; 81015; 82550; 83721; 83735; 84484; 85025; 85027; 85610; 86850; 86900; 86901; 87086; 93005; 93010; 93306-TC; 93880-TC; 99285-25; G0378